=== PATIENT | female | born 1950 | race Hispanic/Latino ===

== ENCOUNTER 2018-11-14 00:31 | Emergency (ER) | payer MEDICARE, OTHER ==
[2018-11-14 00:47] VITALS: O2SAT 98
[2018-11-14] MEDS ORDERED: Sodium Chloride 0.9% 1,000 ML IV STA (00:50)
--- NOTE | 2018-11-14 01:41 | ED PDOC ---
HPI: Psych/Substance Abuse Time Seen by Provider: 11/14/18 00:44 Chief Complaint (Nursing): Alcohol Ingestion Chief Complaint (Provider): Alcohol Ingestion History Per: Patient, Family History/Exam Limitations: no limitations Onset/Duration Of Symptoms: Hrs ([employer]NA[employer]) Modifying Factor(s): Alcohol Additional Complaint(s): 68 y/o female with no significant PMHx was brought to the ED by for alcohol intoxication with associated nausea and vomiting. Patient states she has been feeling unwell. She denies any drugs but admits to drinking 2 beverages. Of note, patient is taking keto pills and is on the ketogenic diet. Past Medical History Reviewed: Historical Data, Nursing Documentation, Vital Signs Vital Signs: Last Vital Signs Temp 98.7 F 11/14/18 00:38 Pulse 69 11/14/18 00:38 Resp 17 11/14/18 00:38 BP 124/63 11/14/18 00:38 Pulse Ox 98 11/14/18 00:38 - Medical History PMH: Anxiety - Family History Family History: States: Unknown Family Hx - Home Medications Home Medications: Ambulatory Orders Medication Instructions Recorded Cyclobenzaprine [Flexeril] 5 mg PO Q8 PRN #15 tab 02/01/17 - Allergies Allergies/Adverse Reactions: Allergies Allergy/AdvReac Type Severity Reaction Status Date / Time No Known Allergies Allergy Verified 05/09/16 11:05 Review of Systems ROS Statement: Except As Marked, All Systems Reviewed And Found Negative Gastrointestinal: Positive for: Nausea, Vomiting Physical Exam - Reviewed Nursing Documentation Reviewed: Yes Vital Signs Reviewed: Yes - Physical Exam Appears: Positive for: Well, No Acute Distress (intoxicated appearing) Head Exam: Positive for: ATRAUMATIC, NORMAL INSPECTION, NORMOCEPHALIC Skin: Positive for: Normal Color, Warm, DRY Eye Exam: Positive for: EOMI, Normal appearance, PERRL ENT: Positive for: Normal ENT Inspection Cardiovascular/Chest: Positive for: Regular Rate, Rhythm. Negative for: Murmur Respiratory: Positive for: Normal Breath Sounds. Negative for: Respiratory Distress Gastrointestinal/Abdominal: Positive for: Normal Exam, Soft. Negative for: Tenderness Extremity: Positive for: Normal ROM. Negative for: Pedal Edema, Deformity Neurologic/Psych: Positive for: Alert, Oriented. Negative for: Motor/Sensory Deficits - ECG O2 Sat by Pulse Oximetry: 98 (RA) Pulse Ox Interpretation: Normal Medical Decision Making Medical Decision Making: Time: 00:50 A/P: intoxicated female with nausea and vomiting. Will wait for clinical sobriety and reevaluate. Alcohol serum IV Fluids Zofran 4 mg 235 Patient appears much improved, states she feels much better Vitals stable Tolerating PO Clinically sober, will discharge into ' custody Scribe Attestation: Documented by Richadr Goode acting as a scribe for Moshe Guerra MD. Provider Scribe Attestation: All medical record entries made by the Scribe were at my direction and personally dictated by me. I have reviewed the chart and agree that the record accurately reflects my personal performance of the history, physical exam, medical decision making, and the department course for this patient. I have also personally directed, reviewed, and agree with the discharge instructions and disposition. Disposition - Clinical Impression Clinical Impression: Alcohol abuse - Patient ED Disposition Is Patient to be Admitted: No - Disposition Referrals: Dave Mccollum MD [Staff Provider] - Disposition: Routine/Home Disposition Time: 02:35 Condition: IMPROVED Instructions: Alcohol Use - When Is Drinking a Problem? Forms: [employer] (Welsh)
[2018-11-14 02:36] VITALS: BP 107/68; PULSE 75; RESP 18; TEMP 97.4
== END 2018-11-14 03:00 | disposition home or self-care (01) ==
LOC: H.ER 00:31
DX: F10.10 Alcohol abuse, uncomplicated (principal)
CPT/HCPCS: 82948; 96361; 96374; 99284; G0480; J2405; J7030